=== PATIENT | male | born 1985 | race Caucasian/White ===

== ENCOUNTER 2023-03-11 12:04 | Emergency (ER) | payer OTHER ==
[~2023-03-11] VITALS: Ht 182.9 cm; Wt 123.0 kg
[2023-03-11 12:16] VITALS: O2SAT 97
[2023-03-11] MEDS ORDERED: SODIUM CHLORIDE 0.9% 1,000 ML IV ONE (12:45)
[2023-03-11] MEDS: NITROGLYCERIN 0.4MG TABLET SL SL PRN ×2 (13:02→13:44)
[2023-03-11 13:17] LABS: BASOPHILS % 0.4 % (0.0-2.0); EOSINOPHILS % 0.6 % (0.0-5.0); HEMATOCRIT. 40.2 % (42.0-52.0); HEMOGLOBIN. 13.9 g/dL (14.0-18.0); LYMPHOCYTES % 22.7 % (20.0-50.0); MEAN CORPUSCULAR HEMOGLOBIN 29.9 pg (28.0-32.0); MEAN CORPUSCULAR HGB CONC 34.6 g/dL (31.0-37.0); MEAN CORPUSCULAR VOLUME 86.4 fL (80.0-94.0); MEAN PLATELET VOLUME 9.3 fl (7.4-10.4); MONOCYTES % 5.3 % (2.0-8.0); PLATELET 169 x1000/uL (130-400); RED BLOOD CELL COUNT 4.65 mill/uL (4.7-6.1); RED CELL DISTRIBUTION WIDTH 13.6 % (11.6-14.6); WHITE BLOOD COUNT 6.4 x1000/uL (4.5-11.0)
[2023-03-11 13:55] LABS: CHLORIDE 105 mEq/L (98-107); INDEX HEMOLYSI 1 (1-3); INDEX ICTERIC 1 (1-4); INDEX LIPEMIC 1 (1-3); POTASSIUM 3.6 mEq/L (3.5-5.1); SODIUM 137 mEq/L (136-145)
[2023-03-11 14:07] LABS: ALANINE AMINOTRANSFERASE 64 IU/L (13-61); ASPARTATE AMINOTRANSFERASE 44 IU/L (15-37); BILIRUBIN TOTAL 0.5 mg/dL (0.1-1.0); CALCIUM 9.6 mg/dL (8.5-10.1); CARBON DIOXIDE 25 mEq/L (21-32); CREATININE 0.9 mg/dL (0.6-1.3); ETHANOL BLOOD < 10 mg/dL (<10); GLUCOSE 114 mg/dL (70-105); PROTEIN TOTAL 8.3 g/dL (6.0-8.3); UREA NITROGEN BLOOD 12 mg/dL (7-21)
[2023-03-11 14:25] LABS: NT PRO B-TYPE NATRIURETIC PEP 11 pg/mL (5-125); TROPONIN I HIGH SENSITIVITY 4 ng/L (<78)
[2023-03-11] MEDS ORDERED: KETOROLAC 15MG/ML VIAL IV ONE (15:15)
[2023-03-11 16:01] LABS: *AMPHETAMINES SCREEN URINE NEGATIVE (NEGATIVE); *BARBITURATES SCREEN URINE NEGATIVE (NEGATIVE); *BENZODIAZEPINES SCREEN URINE NEGATIVE (NEGATIVE); *COCAINE SCREEN URINE NEGATIVE (NEGATIVE); CANNABINOID URINE SCREEN NEGATIVE (NEGATIVE); ECSTASY MDMA SCREEN URINE NEGATIVE (NEGATIVE); OPIATES URINE SCREEN NEGATIVE (NEGATIVE); PHENCYCLIDINE URINE SCREEN NEGATIVE (NEGATIVE)
[2023-03-11 16:29] VITALS: BP 137/69; PULSE 70; RESP 14; TEMP 98.6
[2023-03-11 16:48] LABS: TROPONIN I HIGH SENSITIVITY 5 ng/L (<78)
== END 2023-03-11 18:20 | disposition home or self-care (01) ==
LOC: ER 12:04
DX: R07.89 Other chest pain (principal)
CPT/HCPCS: 80053; 80305; 80320; 83880; 83690; 85025; 85379; 84484; 36415; 71045; 93005; 96361; 96374; 99285; J1885; J7030; Z7610 ×4; G0480